=== PATIENT | female | born 2000 | race Hispanic/Latino ===

== ENCOUNTER 2019-02-22 02:33 | Emergency (ER) | payer OTHER ==
[2019-02-22] MEDS ORDERED: LIDOCAINE HCL 1% 20 ML VIAL ONE (02:57)
[2019-02-22] MEDS ORDERED: IBUPROFEN 200 MG TAB ONE (02:57)
[2019-02-22] MEDS ORDERED: ACETAMINOPHEN EXTRA STRENGTH 500 MG TABLET ONE (02:57)
[2019-02-22] MEDS ORDERED: TETANUS/DIPHTHERIA TOXOID [ADULT] 0.5 ML VIAL IM ONE (02:58)
== END 2019-02-22 04:11 | disposition home or self-care (01) ==
LOC: EDH 02:33
DX: S61.511A Laceration without foreign body of right wrist, initial encounter (principal); W25.XXXA Contact with sharp glass, initial encounter; Y93.89 Activity, other specified; Y92.009 Unspecified place in unspecified non-institutional (private) residence as the place of occurrence of the external cause; Y99.8 Other external cause status
CPT/HCPCS: 12002; 73110; 90471; 90714

== ENCOUNTER 2019-02-22 12:12 | Emergency (ER) | payer OTHER | END 2019-02-22 12:44 | disposition home or self-care (01) | LOC: EDH 12:12 | DX: S51.011A Laceration without foreign body of right elbow, initial encounter (principal); X58.XXXA Exposure to other specified factors, initial encounter; Y93.89 Activity, other specified; Y92.89 Other specified places as the place of occurrence of the external cause; Y99.8 Other external cause status | CPT/HCPCS: 99281 ==